=== PATIENT | male | born 1990 | race Caucasian/White ===

== ENCOUNTER 2021-12-12 12:24 | Emergency (ER) | payer OTHER ==
[~2021-12-12] VITALS: Ht 185.4 cm; Wt 109.0 kg
[2021-12-12] MEDS ORDERED: IV RINGERS,LACTATED 1000ML 1,000 ML IV ONE ×2 (13:15→14:15)
[2021-12-12 13:27] LABS: BASO % 1 % (0-3); EOS # 0.1 x10^3/uL (0.0-0.7); EOS % 1 % (0-3); HEMATOCRIT 49.4 % (39.0-53.0); HEMOGLOBIN 16.6 g/dL (13.0-17.5); LYMPH # 2.5 x10^3/uL (1.0-4.8); LYMPH % 24 % (24-48); MEAN CORPUSCULAR HEMOGLOBIN 29 pg (25-35); MEAN CORPUSCULAR HGB CONC 34 g/dL (31-37); MEAN CORPUSCULAR VOLUME 87 fL (79-100); MONO # 0.7 x10^3/uL (0.0-1.1); MONO % 7 % (0-9); NEUT % 68 % (31-73); PLATELET COUNT 272 x10^3/uL (140-400); RED BLOOD COUNT 5.69 x10^6/uL (4.30-5.70); RED CELL DISTRIBUTION WIDTH 14.2 % (11.5-14.5); WHITE BLOOD COUNT 10.3 x10^3/uL (4.0-11.0)
[2021-12-12 13:39] LABS: CALCIUM 8.7 mg/dL (8.5-10.1); CREATININE 0.9 mg/dL (0.7-1.3); GFR 97.2; POTASSIUM 3.8 mmol/L (3.5-5.1)
[2021-12-12 13:52] LABS: ALBUMIN 4.4 g/dL (3.4-5.0); ALBUMIN/GLOBULIN RATIO 1.1 (1.0-1.7); TOTAL BILIRUBIN 1.1 mg/dL (0.2-1.0); TOTAL PROTEIN 8.4 g/dL (6.4-8.2)
--- NOTE | 2021-12-12 14:45 | EKG ---
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
[2021-12-12 15:54] LABS: BARBITURATES NEG (NEG); BENZODIAZEPINES NEG (NEG); CANNABINOIDS POS (NEG); COCAINE NEG (NEG); METHADONE NEG (NEG); OPIATES NEG (NEG); PHENCYCLIDINE NEG (NEG)
[2021-12-12 16:05] LABS: AMPHETAMINE/METHAMPHETAMINE NEG (NEG)
--- NOTE | 2021-12-12 16:16 | PHYS DOC ---
Past Medical History Additional Past Medical Histor: ADHD AND POSSIBLE BIPOLAR Past Surgical History: No Surgical History Smoking Status: Never Smoker Additional Information: Uses vape pen for CBD Alcohol Use: None Drug Use: None General Adult EDM: Chief Complaint: SUICDAL IDEATION HPI: HPI: Patient is a 31 year old male who presents with suicidal ideation and is seeking inpatient treatment. Patient reports he has had thoughts of suicide for the majority of his adult life, however last week made multiple suicidal gestures. He planned to kill himself via carbon monoxide poisoning. Patient states he attempted to "rig his car" so that he could somehow put the exhaust fumes to the cabin of the vehicle. He was not able to modify the exhaust in a way that would allow him to expose himself to carbon monoxide inside of his vehicle. Patient lives out of his car, and has been staying near [facility] for the past month. Over the past few days, he has used a water filter straw to drink water, but otherwise has not taken in a lot by mouth. Patient has a dog named Georgina who stays in the car with him. Recently, he had employment through [employer]. He became extremely anxious during a delivery and marked the food as delivered, although it was not. Because of this incident, his employment was terminated. He reports a long history of only keeping jobs for a number of months before his anxiety overwhelms him and gets in the way of retaining his employment. In the past, he has attempted to be treated on an outpatient basis through the [facility] in [place]. This has not been consistent or successful for him. Patient denies drug use, alcohol ingestion, homicidal ideation, auditory/visual/tactile hallucinations. He has no physical complaints. Patient states his [facility], Georgina, [facility] Review of Systems: Review of Systems: Constitutional: Denies fever, chills or generalized weakness Eyes: Denies change in visual acuity, visual field deficits or discharge HENT: Denies ear pain, nasal congestion or sore throat Respiratory: Denies cough or shortness of breath Cardiovascular: Denies chest pain, palpitations or edema GI: Denies abdominal pain, nausea, vomiting, bloody stools or diarrhea : Denies dysuria or hematuria Musculoskeletal: Denies back pain or joint pain Integument: Denies rash or other skin lesion Neurologic: Denies headache, focal weakness or sensory changes Psychiatric: See HPI Heart Score: C/O Chest Pain: No Current Medications: Current Medications Medications (Trade) Dose Ordered Sig/Juan Start Time Stop Time Status Last Admin Dose Admin Ringer's Solution 1,000 ml @ 1,000 mls/hr 1X ONCE 12/12/21 14:15 12/12/21 15:14 DC 12/12/21 15:35 1,000 MLS/HR Allergies: Allergies: Allergies Coded Allergies Type Severity Reaction Last Updated Verified ceftriaxone Allergy Intermediate rash 12/12/21 Yes Physical Exam: PE: Constitutional: Well developed, well nourished, no acute distress, non-toxic appearance. HENT: Normocephalic, atraumatic, bilateral external ears normal, nose normal. Eyes: PERRLA, EOMI, conjunctiva normal, no discharge. Neck: Normal range of motion, no tenderness, supple, no stridor. Skin: Warm, dry, no erythema, no rash. Extremities: No tenderness, no cyanosis, no clubbing, ROM intact, no edema. Neurologic: Alert and oriented x4, steady and symmetrical upright gait, no focal deficits noted. Psychologic: Affect depressed, good judgment, good insight. Current Patient Data: Labs: Laboratory Tests Test 12/12/21 13:10 12/12/21 13:12 12/12/21 13:15 12/12/21 15:35 Sodium Level 135 mmol/L (136-145) Potassium Level 3.8 mmol/L (3.5-5.1) Chloride Level 100 mmol/L (98-107) Carbon Dioxide Level 19 mmol/L (21-32) Anion Gap 16 (6-14) Blood Urea Nitrogen 16 mg/dL (8-26) Creatinine 0.9 mg/dL (0.7-1.3) Estimated GFR (Cockcroft-Gault) 97.2 BUN/Creatinine Ratio 18 (6-20) Glucose Level 71 mg/dL (70-99) Calcium Level 8.7 mg/dL (8.5-10.1) Total Bilirubin 1.1 mg/dL (0.2-1.0) Aspartate Amino Transf (AST/SGOT) 39 U/L (15-37) Alanine Aminotransferase (ALT/SGPT) 82 U/L (16-63) Alkaline Phosphatase 82 U/L (46-116) Total Protein 8.4 g/dL (6.4-8.2) Albumin 4.4 g/dL (3.4-5.0) Albumin/Globulin Ratio 1.1 (1.0-1.7) SARS-CoV-2 Antigen (Rapid) Negative (NEGATIVE) White Blood Count 10.3 x10^3/uL (4.0-11.0) Red Blood Count 5.69 x10^6/uL (4.30-5.70) Hemoglobin 16.6 g/dL (13.0-17.5) Hematocrit 49.4 % (39.0-53.0) Mean Corpuscular Volume 87 fL (79-100) Mean Corpuscular Hemoglobin 29 pg (25-35) Mean Corpuscular Hemoglobin Concent 34 g/dL (31-37) Red Cell Distribution Width 14.2 % (11.5-14.5) Platelet Count 272 x10^3/uL (140-400) Neutrophils (%) (Auto) 68 % (31-73) Lymphocytes (%) (Auto) 24 % (24-48) Monocytes (%) (Auto) 7 % (0-9) Eosinophils (%) (Auto) 1 % (0-3) Basophils (%) (Auto) 1 % (0-3) Neutrophils # (Auto) 7.0 x10^3/uL (1.8-7.7) Lymphocytes # (Auto) 2.5 x10^3/uL (1.0-4.8) Monocytes # (Auto) 0.7 x10^3/uL (0.0-1.1) Eosinophils # (Auto) 0.1 x10^3/uL (0.0-0.7) Basophils # (Auto) 0.0 x10^3/uL (0.0-0.2) Urine Opiates Screen Neg (NEG) Urine Methadone Screen Neg (NEG) Urine Barbiturates Neg (NEG) Urine Phencyclidine Screen Neg (NEG) Urine Amphetamine/Methamphetamine Neg (NEG) Urine Benzodiazepines Screen Neg (NEG) Urine Cocaine Screen Neg (NEG) Urine Cannabinoids Screen Pos (NEG) Urine Ethyl Alcohol Neg (NEG) 12/12/21 13:15 12/12/21 13:10 Vital Signs: Vital Signs Date Time Temp Pulse Resp B/P (MAP) Pulse Ox O2 Delivery O2 Flow Rate FiO2 12/12/21 15:42 114 190/89 (122) 98 Room Air 12/12/21 12:25 97.9 20 97.9 EKG: EKG: EKG Interpreted by Dr. Yu at 1308: Sinus tachycardia 116 bpm with no ecto pic beats. QT 318 ms/QTc 448 ms. No STEMI. Course & Med Decision Making: Course & Med Decision Making Pertinent Labs and Imaging studies reviewed. (See chart for details) Patient is a 31-year-old male who presents to the emergency department for psychiatric evaluation and eventually placement. He has no physical complaints at this time and denies all substance use. Work-up will include labs, EKG, swabs for COVID-19. PAT paged. Evaluation by Nathalie with ANA determines patient meets criteria for inpatient psychiatric admission. [facility] has bed availability and has accepted the patient. He will be transferred when COVID-19 PCR test results. [place]air Disclaimer: Dragon Disclaimer: This electronic medical record was generated, in whole or in part, using a voice recognition dictation system. Departure Departure Impression: Primary Impression: Suicidal behavior with attempted self-injury [facility] Condition: STABLE Referrals: NO PCP (PCP) JAKY MARIE Dec 12, 2021 16:16
[2021-12-12] MEDS ORDERED: hydrOXYzine 25 MG TABLET PO PRN (16:45)
[2021-12-12 22:10] VITALS: BP 143/93
[2021-12-12 22:19] VITALS: BP 138/89
[2021-12-13 07:58] VITALS: BP 136/80
== END 2021-12-13 10:45 ==
LOC: ER 12:24
DX: R45.851 Suicidal ideations (principal); Z20.822 Contact with and (suspected) exposure to COVID-19; F31.9 Bipolar disorder, unspecified; F90.9 Attention-deficit hyperactivity disorder, unspecified type; Z88.1 Allergy status to other antibiotic agents
CPT/HCPCS: 36415; 80053; 80307; 85025; 87426; 93005; 96361; 96374; 99285; J2060; J7120; U0003; U0005